=== PATIENT | female | born 1995 | race Hispanic/Latino ===

== ENCOUNTER 2023-07-05 09:05 | Emergency (ER) | payer SELFPAY ==
[2023-07-05 09:15] VITALS: BP 112/87; PULSE 98; RESP 16; TEMP 36.6; O2SAT 100
--- NOTE | 2023-07-05 12:19 | ED.EAR ---
HPI - Ear Problem General Chief complaint: Ear Stated complaint: L EAR/JAW DIFF TO OPEN Time Seen by Provider: 07/05/23 11:18 History of Present Illness HPI Narrative: 28-year-old female presenting to the emergency department for evaluation left ear pain and sore throat. Related Data Allergies Allergy/AdvReac Type Severity Reaction Status Date / Time No Known Allergies Allergy Verified 07/05/23 11:25 Review of Systems Review of Systems: All systems reviewed & are unremarkable except as noted in HPI and below Exam Narrative: APPEARANCE: Well appearing, no pain, no distress, well-nourished. HEAD: normocephalic, atraumatic. EYES: PERRLA/EOMI, conjunctivae clear. NOSE: Normal no drainage EARS:TMS clear with good light reflex. THROAT: Posterior exudate NECK: Supple. Lymphadenopathy, no masses. RESPIRATORY: Airway patent, respirations nonlabored. Clear to auscultation bilaterally, no rales, rhonchi, wheezing. CARDIOVASCULAR: Regular rate and rhythm without murmurs rubs or gallops. ABDOMINAL: Soft, nontender, nondistended, normal bowel sounds MUSCULOSKELETAL: Moves all extremities. Strength/ROM intact, No edema, No calf tenderness. NEURO: Alert. Cranial nerves II through XII intact. Grossly intact SKIN: Warm, dry. Normal Color Course Course Emergency Course: Patient was treated for strep throat Vital Signs Vital signs: Vital Signs Temperature 97.8 F 07/05/23 09:15 Pulse Rate 98 07/05/23 09:15 Respiratory Rate 16 07/05/23 09:15 Blood Pressure 112/87 07/05/23 09:15 Pulse Oximetry 100 07/05/23 09:15 Oxygen Delivery Room Air 07/05/23 09:15 Temperature 97.8 F 07/05/23 09:15 Pulse Rate 98 07/05/23 09:15 Respiratory Rate 16 07/05/23 09:15 Blood Pressure 112/87 07/05/23 09:15 Pulse Oximetry 100 07/05/23 09:15 Oxygen Delivery Room Air 07/05/23 09:15 Medical Decision Making [facility] Narrative Medical decision making narrative: 28-year-old female presenting ED for evaluation of left ear pain and sore throat. Patient is being treated empirically for strep throat. Vital Signs Vital Signs: Vital Signs Temperature 97.8 F 07/05/23 09:15 Pulse Rate 98 07/05/23 09:15 Respiratory Rate 16 07/05/23 09:15 Blood Pressure 112/87 07/05/23 09:15 Pulse Oximetry 100 07/05/23 09:15 Oxygen Delivery Room Air 07/05/23 09:15 Temperature 97.8 F 07/05/23 09:15 Pulse Rate 98 07/05/23 09:15 Respiratory Rate 16 07/05/23 09:15 Blood Pressure 112/87 07/05/23 09:15 Pulse Oximetry 100 07/05/23 09:15 Oxygen Delivery Room Air 07/05/23 09:15 Discharge Plan Discharge Clinical Impression: Strep pharyngitis, Otalgia Patient Disposition: Home, Self-Care Condition: Stable Instructions: Antibiotic Form, Strep Throat (ED) Additional Instructions: Tylenol for pain control the fever. Antibiotic as directed until completed. Have close follow-up with your primary care physician and with [facility]. Prescriptions: New amoxicillin-pot clavulanate 875-125 mg tablet 1 tablet PO Q12H Qty: 14 0RF Follow-up/Referrals: PHYSICIAN,BED CONTROL SPECIALIST [Primary Care Provider] -
[2023-07-05] MEDS: AMOXICILLIN/CLAVULANATE K 875-125 MG TAB 1 TABLET PO (12:30)
== END 2023-07-05 13:00 | disposition home or self-care (01) ==
PROVIDERS: Emergency Provider Emergency Medicine; Referring Provider Family Medicine
DX: J02.0 Streptococcal pharyngitis (principal); H92.02 Otalgia, left ear
CPT/HCPCS: 99283; A9270